=== PATIENT | male | born 1955 | race Caucasian/White ===

== ENCOUNTER 2018-05-31 15:30 | Emergency (ER) | payer OTHER ==
[2018-05-31 15:40] VITALS: BP 142/84
--- NOTE | 2018-05-31 16:22 | UC ---
HPI Wound/Suture Re-check - HPI Summary HPI Summary: 5 mm open area on back from a poorly healing surgical incision--was bleeding earlier today - History Of Current Complaint Chief Complaint: [employer] Stated Complaint: OPEN INCISION (BACK) Time Seen by Provider: 05/31/18 16:15 Hx Obtained From: Patient Onset/Duration: Lasting Weeks, Worse Since - today it began to bleed Surgical Site: left side of upper back Pain Intensity: 1 Pain Scale Used: 0-10 Numeric - Allergies/Home Medications Allergies/Adverse Reactions: Allergies Allergy/AdvReac Type Severity Reaction Status Date / Time ertapenem Allergy Rash Verified 05/31/18 15:41 Home Medications: Home Medications Allopurinol TAB* [Zyloprim 100 MG TAB*] 1 tab PO DAILY 05/31/18 [History Confirmed 05/31/18] Aspirin [Aspir-Low] 1 tab PO DAILY 05/31/18 [History Confirmed 05/31/18] Lisinopril/HCTZ 10/12.5(NF) [Zestoretic 10/12.5(NF)] 1 tab PO DAILY 05/31/18 [ History Confirmed 05/31/18] Multivitamin [Multiple Vitamins] 1 tab PO DAILY 05/31/18 [History Confirmed 11/16] Niacin (Inositol Niacinate) [Niacin Flush Free 500 mg Cap] 1 tab PO DAILY [History Confirmed 05/31/18] Occuvite 1 tab PO DAILY 05/31/18 [History] lamoTRIgine [Lamictal] 1 tab PO BID 05/31/18 [History Confirmed 05/31/18] PMH/Surg Hx/FS Hx/Imm Hx Previously Healthy: No Cardiovascular History: Hypertension Psychological History: Bipolar Disorder - Surgical History Surgical History: Yes Surgery Procedure, Year, and Place: 2017 Colon/small intestine - Family History Known Family History: Positive: None - Social History Occupation: Employed Full-time Lives: With Family Alcohol Use: None Substance Use Type: None Smoking Status (MU): Never Smoked Tobacco Review of Systems Constitutional: Negative Skin: Other - 5 mm pen area left upper back at site of a skin surgery---some bleeding earlier today Eyes: Negative ENT: Negative Respiratory: Negative Cardiovascular: Negative Gastrointestinal: Negative Genitourinary: Negative Motor: Negative Neurovascular: Negative Musculoskeletal: Negative Neurological: Negative Psychological: Negative Is Patient Immunocompromised?: No All Other Systems Reviewed And Are Negative: Yes Physical Exam Triage Information Reviewed: Yes Appearance: Well-Appearing, No Pain Distress, Well-Nourished Vital Signs: Initial Vital Signs Temp 97.5 F 05/31/18 15:36 Pulse 80 05/31/18 15:36 Resp 12 05/31/18 15:36 BP 142/84 05/31/18 15:36 Pulse Ox 98 05/31/18 15:36 Vital Signs Reviewed: Yes Eye Exam: Normal Eyes: Positive: Conjunctiva Clear ENT Exam: Normal ENT: Positive: Normal ENT inspection, Hearing grossly normal. Negative: Trismus , Muffled voice, Hoarse voice Dental Exam: Normal Neck exam: Normal Neck: Positive: Supple, Nontender Respiratory Exam: Normal Respiratory: Positive: Chest non-tender, No respiratory distress, No accessory muscle use Cardiovascular Exam: Normal Cardiovascular: Positive: RRR, Pulses Normal, Brisk Capillary Refill Musculoskeletal Exam: Normal Musculoskeletal: Positive: Strength Intact, ROM Intact, No Edema Neurological Exam: Normal Neurological: Positive: Alert, Muscle Tone Normal Psychological Exam: Normal Skin Exam: Other Skin: Positive: Other - 5 mm unhealing wound on left upper back---s/p surgical incision of a mole Course/Dx - Course Course Of Treatment: pressure dressing applied follow with pcp - Differential Dx - Laceration/Wound Provider Diagnoses: unhealing wound left scapula, hypertension in poor control Discharge - Sign-Out/Discharge Documenting (check all that apply): Patient Departure All imaging exams completed and their final reports reviewed: No Studies - Discharge Plan Condition: Stable Disposition: HOME Patient Education Materials: Acute Wound Care (ED), Hypertension (ED) Referrals: No Primary Care Phys,NOPCP [Primary Care Provider] - Additional Instructions: Follow with your primary care provider when you return to [facility] - Billing Disposition and Condition Condition: STABLE Disposition: Home - Attestation Statements Provider Attestation: Per institutional requirements, I have reviewed the chart, however, I was not consulted specifically or made aware of this patient by the midlevel provider. I did not personally evaluate, interact with , or disposition this patient.
== END 2018-05-31 16:45 | disposition home or self-care (01) ==
LOC: UCEAST 15:30
DX: T81.89XA Other complications of procedures, not elsewhere classified, initial encounter (principal); I10 Essential (primary) hypertension; F31.9 Bipolar disorder, unspecified
CPT/HCPCS: 99201; G0463